=== PATIENT | male | born 1970 | race Hispanic/Latino ===

== ENCOUNTER 2017-02-14 20:10 | Emergency (ER) | payer OTHER ==
[~2017-02-14] VITALS: Ht 157.5 cm; Wt 79.5 kg
[2017-02-14 20:13] VITALS: BP 172/97; PULSE 94; RESP 16; O2SAT 100
[2017-02-14 20:50] LABS: BASOPHILS % (AUTO) 0.1 % (0-3); EOSINOPHILS % (AUTO) 0.9 % (0-5); MONOCYTES % (AUTO) 7.3 % (4-12); Mean Corpuscular Volume 81.8 fL (81-100); NEUTROPHILS % (AUTO) 68.2 % (40-74); Platelet Count 172 bil/L (150-400)
--- NOTE | 2017-02-14 21:00 | ED.REPORT ---
HPI-Abd Pain M 40 and Over Date of Service Feb 14, 2017 ED Provider: Bryan Hernandez MD Patient is a 46 year old male with a history of hypertension, hyperlipidemia, pancreatitis, and pre-diabetes who presents to the ED complaining of epigastric abdominal pain that began last night. The patient states that his discomfort began after eating dinner and he believed that he was experiencing heartburn. The pain prevented him from sleeping well, as he had to get up every half an hour to walk around. Today the patient experienced pain at his epigastric region continuously, radiating up to his chest, shoulders, and sides. He reports an associated headache, with a burning pain occasionally. He admits to nausea but denies vomiting, diarrhea, constipation, or bloody stool. Patient denies a history of heart disease. He admits to a history of hypertension but he is not currently on any medication per his PCP's orders. He denies a history of gallbladder disease. Nursing Notes Stated Complaint: CHEST PAIN Chief Complaint: Male Abdominal Pain Nursing Notes Reviewed: Yes Allergies: Coded Allergies: No Known Allergies (Unverified , 02/14/17) Scheduled Omeprazole (Omeprazole) 20 Mg Tablet.dr 20 MG PO BID Scheduled PRN Hydrocodone-Acetaminophen 5-325 mg (Hydrocodone-Acetaminophen 5-325 mg) 1 Each Tablet 1-2 TABLET PO Q4H PRN PRN For Pain Ondansetron ODT (Ondansetron ODT) 8 Mg Tab.rapdis 8 MG PO QID PRN PRN For Nausea General Time Seen by MD: 21:00 Chief Complaint Abdominal pain Hx Obtained From: Patient Arrived By: Walk-in Sudden in Onset?: No Onset Occurred: Yesterday Symptom Duration: Since onset Progression since Onset: Gradually worsening Location: : Epigastric Quality: Painful Severity: Current: Moderate Severity: Maximum: Moderate Recent Healthcare: No recent doctor visit, No recent hospitalization Similar Sx Previous: Yes Past Medical History Past Medical History pancreatitis pre-diabetes Reports: Hyperlipidemia, Hypertension, Denies: Coronary artery disease Past Surgical History partial nephrectomy Social History Other Social History: Good social support, Local resident Ambulatory Status Independent Review of Systems Cardiovascular: Reports: Chest pain GI: Reports: Abdominal pain, Nausea, Denies: Bloody/tarry stool, Constipation, Diarrhea, Vomiting Musculoskeletal: Reports: Extremity pain Complete sys rev & neg: except as marked. Neurologic: Reports: Headache Physical Exam Initial Vital Signs Vital Signs (First) Date Time Temp Pulse Resp B/P Pulse Ox O2 Delivery O2 Flow Rate FiO2 02/14/17 20:13 36.5 94 16 172/97 100 Room Air Initial VS: Reviewed Head / Eyes: Atraumatic, Normocephalic, PERRL ENT: Mucous membranes moist, Conjunctiva normal, No scleral icterus Neck: Supple, Full range of motion Extremities: No swelling, No tenderness Skin: Warm, Dry, No cyanosis Neurologic: Alert, Oriented, Nonfocal Psychiatric: Mood/affect normal, Behavior normal, Normal thought content General/Constitutional: Awake, Alert, No acute distress Respiratory / Chest: Breath sounds NL, Breath sounds = bilat, No respiratory distress, No rales, No rhonchi, No wheezing Cardiovascular: Heart rate NL, Regular rhythm, Heart sounds NL, No murmurs Abdomen: Soft, BS normoactive Tenderness/Guarding/Rebound: Positive: Tender epigastric Back: No midline vertebral tend, No CVA tenderness Interpretation & Diagnostics Lab Results Interpretation Result Diagram: 02/14/17203402/14/172143 Test 02/14/17 20:35 02/14/17 21:39 02/14/17 21:44 White Blood Count 10.2th/mm3 (3.8-10.1) Red Blood Count 5.60mil/mm3 (4.40-5.80) Hemoglobin 15.7g/dL (13.8-17.2) Hematocrit 45.8% (41.0-50.0) Mean Corpuscular Volume 81.8fL (81-100) Mean Corpuscular Hemoglobin 28.0pg (27.0-35.0) Mean Corpuscular Hemoglobin Concent 34.3% (32.0-37.0) Red Cell Distribution Width 13.7% (12.3-15.4) Platelet Count 172bil/L (150-400) Neutrophils (%) (Auto) 68.2% (40-74) Lymphocytes (%) (Auto) 23.2% (14-46) Monocytes (%) (Auto) 7.3% (4-12) Eosinophils (%) (Auto) 0.9% (0-5) Basophils (%) (Auto) 0.1% (0-3) Prothrombin Time 10.6sec (8.1-12.5) Prothromb Time International Ratio 0.99ratio Urine Color Yellow (YELLOW) Urine Appearance Clear (CLEAR,HAZY) Urine pH 6.0 (5.0-8.0) Urine Specific [place] 1.025 (1.003-1.035) Urine Protein 30mg/dL (NEG,TRACE) Urine Glucose (UA) 1000mg/dL (NEGATIVE) Urine Ketones 80mg/dL (NEGATIVE) Urine Occult Blood Negative (NEGATIVE) Urine Nitrite Negative (NEGATIVE) Urine Bilirubin Negative (NEGATIVE) Urine Urobilinogen Normalmg/dL (NORMAL) Urine Leukocyte Esterase Negative (NEGATIVE) Urine RBC 0-2/hpf (0-2) Urine WBC 0-5/hpf (0-5) Urine Epithelial Cells None/hpf (NONE-MOD) Urine Crystals None seen (NONE SEEN) Urine Bacteria None/hpf (NONE-FEW) Urine Hyaline Casts None/lpf (NONE) Urine Granular Casts None seen (NONE SEEN) Urine Waxy Casts None seen (NONE SEEN) Urine Red Blood Cell Casts None seen (NONE SEEN) Urine White Blood Cell Casts None seen (NONE SEEN) Urine Mucus None seen (None Seen) Urine Trichomonas None seen (NONE SEEN) Urine Yeast None (NONE SEEN) Urinalysis Comment None Urine Culture Reflexed Not indicated Sodium Level 133mEq/L (134-144) Potassium Level 4.2mEq/L (3.5-5.2) Chloride Level 96mEq/L (97-108) Carbon Dioxide Level 21mmol/L (18-29) Blood Urea Nitrogen 7mg/dL (6-24) Creatinine < 0.30mg/dL (0.76-1.27) Estimat Glomerular Filtration Rate 346mL/min (>59) Glucose Level 315mg/dL (60-99) Calcium Level 8.5mg/dL (8.5-10.1) Magnesium Level 1.9mg/dL (1.6-2.6) Total Bilirubin 0.5mg/dL (0.0-1.2) Aspartate Amino Transf (AST/SGOT) 55U/L (0-50) Alanine Aminotransferase (ALT/SGPT) 60U/L (0-44) Alkaline Phosphatase 94U/L (25-150) Total Protein 7.5g/dL (6.4-8.4) Albumin 3.9g/dL (3.4-5.0) Lipase 58U/L (13-60) Hold Bueno Top Tube Received (Received) ECG Interpretation ECG Interpretation: Sinus rhythm, Rate 93 Left ventricular hypertrophy Nonspecific T abnormalities. Time: 21:00 CT Abd / Pelvis Interpretation CONCLUSION: Very mild acute pancreatitis involving the head and uncinate process of the pancreas, mild hazy peripancreatic and mild thickwalled appearance of the adjacent duodenum. No free fluid, pseudocyst or obstruction. Similar appearance of the left kidney with scarring, fat and soft tissue density mass at the upper pole which may be due to scarring or atypical angiomyolipoma, and few presumed left renal cysts. Radiologist: Divina Lockett MD 02/14/2017 - 11:20:33 PM PDT Study type: Abdominal CT IV contrast Interpretation / Wet Read by: Interpret - Radiologist Re-Eval/Medical Decision Med Decision/Clinical Course 46-year-old, reportedly with "prediabetes" presents with epigastric pain, and has negative LFTs including a negative lipase, but a positive CT with stranding around the head of the pancreas. This seems to him similar to his prior pancreatitis. He denies alcohol use and has no specific other inducements to pancreatitis. This appears to be a mild case at worst and he is comfortable with discharge home with pain medicine and nausea medicine. Urged to return promptly if pain uncontrolled, vomiting and control, or if he develops fever or other new symptoms of concern. He is hyperglycemic, and probably does have overt diabetes. This needs follow-up with his PCP. He is not currently on diabetic meds. Source of Hx: Old records Time of Eval: 00:21 Patient Status: Condition improved Re-Evaluation/Progress Note: Rechecked the patient, who was informed that he has pancreatitis on CT scan. His pancreatitis is mild and he can be discharged home. He will need to start on a low fat diet. Patient understands and agrees with the plan to be discharged home. Discharge instructions and follow-up discussed. All questions were addressed. Return to the ED warnings given. Counseled Regarding: Diagnosis, Lab results, Need for follow-up, When/why to return to ED Discharge & Departure Primary Impression: Pancreatitis Chronicity: acute Pancreatitis type: unspecified pancreatitis type Qualified Code: K85.9 - Acute pancreatitis, unspecified Additional Impression: Diabetes mellitus type II, uncontrolled Disposition: Home Vital Signs - All Vital Signs Date Time Temp Pulse Resp B/P Pulse Ox O2 Delivery O2 Flow Rate FiO2 02/15/17 02:15 95 18 139/95 97 Room Air 02/14/17 23:15 92 18 159/86 97 Room Air 02/14/17 20:13 36.5 94 16 172/97 100 Room Air )( All Prior VS Reviewed: Yes Condition: Stable Patient Instructions: Low Fat Diet (ED), Pancreatitis (ED) Additional Instructions: Begin with a liquid diet, no fat. No alcohol, no caffeine, and then advance slowly as tolerated. Avoid fat for the next four weeks. Vicodin two tablets every four hours as needed for pain\\ Omeprazole twice daily Zofran up to four times daily if needed for nausea Follow-up with your doctor in the office. Call them today for follow-up early this week. Return promptly if pain is not controlled, if you have uncontrolled vomiting, or any other new symptoms of concern. Referrals: Ant Cary (PCP) Scribe Attestation Portions of this note were transcribed by Aide Nicole. I, Dr. Hernandez personally performed the history, physical exam and medical decision-making; I reviewed and confirmed the accuracy of the information in the transcribed note. Signed by: Dre Figueroa, 02/15/2017 0034 copies to: Ant Cary Christopher W MD Feb 14, 2017 21:00 Aide Nicole Feb 14, 2017 21:12
[2017-02-14] MEDS ORDERED: 0.9% Sodium Chloride 1,000 ML IV ONE (21:08)
[2017-02-14] MEDS ORDERED: Ondansetron 2 mg/mL 2 mL Inj IVPUSH ONE (21:10)
[2017-02-14] MEDS ORDERED: Pantoprazole 4 mg/mL 10 mL Inj IVPUSH ONE (21:10)
[2017-02-14] MEDS: HYDROmorphone 1 mg/mL Inj IVPUSH PRN ×2 (21:29→23:24)
[2017-02-14 21:31] LABS: INR 0.99 ratio
[2017-02-14 21:55] LABS: APPEARANCE,URINE CLEAR (CLEAR,HAZY); COLOR,URINE YELLOW (YELLOW); OCCULT BLOOD,URINE NEGATIVE (NEGATIVE); UROBILINOGEN,URINE NORMAL (NORMAL)
[2017-02-14 22:17] LABS: Lipase 58 U/L (13-60); Magnesium 1.9 mg/dL (1.6-2.6)
[2017-02-14 23:15] VITALS: BP 159/86; PULSE 92; RESP 18; O2SAT 97
[2017-02-15] MEDS ORDERED: HYDR-4003 PO (00:28)
[2017-02-15] MEDS ORDERED: ONDA8TAB10 PO (00:28)
[2017-02-15] MEDS ORDERED: OMEP20TA86 PO (00:28)
[2017-02-15] MEDS ORDERED: _HYDROcodone/APAP 5-325 mg Tablet PO PRN (00:30)
[2017-02-15] MEDS ORDERED: _Ondansetron ODT 4 mg Tablet PO PRN (00:30)
[2017-02-15 02:15] VITALS: BP 139/95; PULSE 95; RESP 18; O2SAT 97
--- NOTE | 2017-02-15 08:47 | DRSVH ---
PROCEDURE: CT ABDOMEN AND PELVIS WITH CONTRAST ([id number]) INDICATIONS: epigastric pain, nausea, prior pancreatitis, nephr TECHNIQUE: After the administration of intravenous contrast, 5 mm thick sections acquired from the diaphragm to the symphysis. 5 mm coronal and sagittal reformats were acquired. For radiation dose reduction, the following was used: automated exposure control, adjustment of mA and/or kV according to patient sherly reynoso COMPARISON: [facility], CT, CT CHEST WO CON, 10/02/2016, 10:32. [facility], CT, CT KUB, 09/16/2016, 15:44. FINDINGS: Image quality: Excellent. ABDOMEN: Lung bases: Lung bases are clear. Heart size is normal. Solid organs: There is stranding around the pancreatic head. There is no pancreatic duct dilation or calcification. No pancreatic pseudocyst. There is diffuse hepatic fatty infiltration. Liver and spleen are normal in size and enhancement. Bi liary system is non dilated. Pancreas enhances normally. No adrenal nodules. Kidneys demonstrate n ormal size and enhancement, without hydronephrosis. There is a heterogeneous mass superior to the le ft kidney measuring 5.7 x 4.2 cm. Peritoneum and bowel: Bowel loops demonstrate normal wall thickness and caliber. No free fluid or a ir. Nodes and vessels: No retroperitoneal or mesenteric adenopathy by size criteria. Aorta and inferior vena cava are normal in size. Miscellaneous: No ventral hernias. PELVIS: Genitourinary: Bladder wall thickness is normal. Miscellaneous: No inguinal adenopathy. There is a fat containing left inguinal hernia. Bones: No suspicious bony lesions. No vertebral body compression fractures. IMPRESSION: 1. Soft tissue stranding around pancreatic head suggesting acute pancreatitis. 2. Heterogeneous mass superior to the left kidney measuring 5.7 x 4.2 cm, which is slightly enlarged compared to 09/16/2016 (previously 5.4 x 4.0 cm). Reportedly, the patient has a history of partial ne phrectomy. Recommend clinical correlation and urological followup. 3. Hepatic steatosis. Dictated by: Kimberly Soriano M.D. on 02/15/2017 at 8:36 Transcribed by: MARTINA on 02/15/2017 at 8:47 Approved by: Kimberly Soriano M.D. on 02/15/2017 at 10:56
== END 2017-02-15 01:14 | disposition home or self-care (01) ==
LOC: SED 20:10 → EDUNIT# 20:10 → SED 02-15 01:14
DX: K85.90 Acute pancreatitis without necrosis or infection, unspecified (principal); E11.9 Type 2 diabetes mellitus without complications; I10 Essential (primary) hypertension; E78.5 Hyperlipidemia, unspecified
CPT/HCPCS: 36415; 74177; 80053; 81000; 83036; 83690; 83735; 85025; 85610; 93005; 96361; 96374; 96375; 96376; 99285; J1170; J2405; J7030; Q9967